=== PATIENT | female | born 1980 | race Caucasian/White ===

== ENCOUNTER → 2019-06-15 13:34 | Outpatient (CLI) | payer OTHER, SELFPAY ==
[2019-06-16 09:06] LABS: Vitamin D,25 Hydroxy 46.8 ng/mL (29.95-100.01)
== END ==
PROVIDERS: Visit Provider Podiatrist
DX: E55.9 Vitamin D deficiency, unspecified (principal); M84.375A Stress fracture, left foot, initial encounter for fracture
CPT/HCPCS: 36415; 82306